=== PATIENT | male | born 1970 | race Caucasian/White ===

== ENCOUNTER 2023-03-12 02:09 | Emergency (ER) | payer BC | END 2023-03-12 04:03 | LOC: MERGE 02:09 → MW.ED 02:09 | DX: R19.5 Other fecal abnormalities (principal); I10 Essential (primary) hypertension; E11.9 Type 2 diabetes mellitus without complications; Z79.84 Long term (current) use of oral hypoglycemic drugs | CPT/HCPCS: 36415; 80307; 99281; 99283 ==